=== PATIENT | male | born 1945 | race Caucasian/White ===

== ENCOUNTER 2018-03-09 21:15 | Outpatient (CLI) | payer MEDICARE ==
--- NOTE | 2018-03-09 22:19 | Ultrasound Report ---
EXAM: LEFT LOWER EXTREMITY VENOUS ULTRASOUND EXAM DATE: 03/09/2018 09:45 PM. CLINICAL HISTORY: L LEG EDEMA. COMPARISON: None. TECHNIQUE: Real-time sonographic vascular imaging was performed by the supervisor mixing through the lower extremity utilizing both color-flow and Doppler spectral analysis. Multiple claim representative static bakari ges were saved for review. FINDINGS: Common Femoral Vein (CFV): Normal. CFV-GSV Junction: Normal. Profunda Femoral Vein (PFV): Normal. Femoral Vein (FV) Prox: Normal. Femoral Vein (FV) Mid: Normal. Femoral Vein (FV) Dist: Normal. Popliteal Vein: Normal. Posterior Tibial Veins: Normal. Peroneal Veins: Normal. Other: None. IMPRESSION: No evidence for left leg deep venous thrombosis. [facility] Referring Provider Line: [phone] SITE ID: [id number]
== END 2018-03-09 21:16 | disposition home or self-care (01) ==
LOC: DI 21:15
PROVIDERS: ATTEND Internal Medicine
DX: R60.0 Localized edema (principal)

== ENCOUNTER 2019-04-26 12:00 | Outpatient (CLI) | payer MEDICARE ==
--- NOTE | 2019-05-31 06:42 | Nuclear Medicine Report ---
Reason: FATIGUE, CAD Procedure Date: 04/26/2019 Accession Number: [id number] / [id number] Procedure: NM - Myocardial Perfusion Single CPT Code: FULL RESULT: FINDINGS: IMPRESSION: For complete results, please see the report dated 04/25/2019.
== END 2019-04-26 23:59 | disposition home or self-care (01) ==
LOC: DI 12:00
PROVIDERS: ATTEND Internal Medicine
DX: I25.10 Atherosclerotic heart disease of native coronary artery without angina pectoris (principal); R53.83 Other fatigue
CPT/HCPCS: 78453; 93017; A9500; J2785

== ENCOUNTER 2019-05-18 16:57 | Outpatient (CLI) | payer MEDICARE ==
--- NOTE | 2019-05-20 09:41 | Ultrasound Report ---
Reason: CLAUDICATION Procedure Date: 05/18/2019 Accession Number: [id number] / [id number] Procedure: US - Duplex Lwr Ext Arterial Bilat CPT Code: FULL RESULT: EXAM: Bilateral Lower Extremity Arterial Doppler Ultrasound EXAM DATE: 05/18/2019 06:00 PM. CLINICAL HISTORY: CLAUDICATION. COMPARISON: None. TECHNIQUE: Real-time sonographic vascular imaging was performed by the transplant nurse practitioner, utilizing color-flow, Doppler flow, and spectral analysis. Multiple vaccine customer representative static images were saved for review. FINDINGS: Bilateral lower extremity arterial ultrasounds performed with use of grayscale, color Doppler and spectral Doppler. The bilateral common femoral, profunda femoris, femoral, popliteal, anterior tibial, posterior tibial, peroneal and dorsalis pedis arteries are interrogated and found to be patent by color Doppler. Grayscale Doppler demonstrates diffuse atherosclerotic disease without definite single subjectively hemodynamically flow-limiting focal lesion visualized. Brisk systolic upstrokes are preserved by spectral Doppler throughout the right lower extremity region with the exception that the signal in the dorsalis pedis artery is difficult to detect but confirmed, biphasic. Brisk systolic upstrokes are preserved by spectral Doppler throughout the left lower extremity. The following peak systolic velocities in cm/second and waveforms are detected: Right Leg: PLAYERS ASSISTANT: PSV 132 cm/sec. Biphasic waveform. PSFA: PSV 76 cm/sec. Triphasic waveform. MSFA: PSV 106 cm/sec. Triphasic waveform. DSFA: PSV 131 cm/sec. Biphasic waveform. PFA: PSV 94 cm/sec. Biphasic waveform. POP: PSV 65 cm/sec. Triphasic waveform. LAWRENCE: PSV 70 cm/sec. Triphasic waveform. SPRING TESTER: PSV 79 cm/sec. Triphasic waveform. PER: PSV 42 cm/sec. Triphasic waveform. DPA: PSV 53 cm/sec. Biphasic waveform. Left Leg: PLAYERS ASSISTANT: PSV 138 cm/sec. Biphasic waveform. PSFA: PSV 100 cm/sec. Biphasic waveform. MSFA: PSV 113 cm/sec. Triphasic waveform. DSFA: PSV 137 cm/sec. Bi/Triphasic waveform. PFA: PSV 84 cm/sec. Monophasic waveform. POP: PSV 69 cm/sec. Triphasic waveform. LAWRENCE: PSV 103 cm/sec. Triphasic waveform. SPRING TESTER: PSV 85 cm/sec. Triphasic waveform. PER: PSV 63 cm/sec. Triphasic waveform. DPA: PSV 91 cm/sec. Biphasic waveform. IMPRESSION: Patent three-vessel arterial supply with preserved systolic upstrokes to both ankles with signal detected in both dorsalis pedis arteries. [facility]
== END 2019-05-18 16:58 | disposition home or self-care (01) ==
LOC: DI 16:57
PROVIDERS: ATTEND Internal Medicine
DX: I73.9 Peripheral vascular disease, unspecified (principal)
CPT/HCPCS: 93925

== ENCOUNTER 2019-12-07 20:04 | Outpatient (CLI) | payer MEDICARE ==
--- NOTE | 2019-12-08 09:21 | Ultrasound Report ---
Reason: RIGHT UPPER QUADRANT PAIN Procedure Date: 12/07/2019 Accession Number: [id number] / [id number] Procedure: US - Abdomen Limited CPT Code: Final Report FULL RESULT: EXAM: ABDOMEN ULTRASOUND LIMITED, RUQ EXAM DATE: 12/07/2019 09:17 PM. CLINICAL HISTORY: Right upper quadrant pain. COMPARISON: None. TECHNIQUE: Real-time scanning was performed with static images obtained. FINDINGS: Liver: Normal size with increased echogenicity and coarsening of echotexture. This can limit evaluation for underlying masses, no mass is seen. Liver spans at least 18.5 cm. Main portal vein flow: Hepatopetal. Gallbladder: Gallbladder contains sludge but demonstrates thin wall with no pericholecystic fluid and negative sonographic Stubbs's sign. Biliary System: CBD measures 4 mm. No intrahepatic or extrahepatic ductal dilatation. Other: None. IMPRESSION: Increased hepatic parenchymal echogenicity with coarsened echotexture can be seen with disease such as steatosis. Gallbladder sludge, exam sonographically negative for cholecystitis. [facility]
== END 2019-12-07 20:05 | disposition home or self-care (01) ==
LOC: DI 20:04
PROVIDERS: ATTEND Internal Medicine
DX: R10.11 Right upper quadrant pain (principal); K76.0 Fatty (change of) liver, not elsewhere classified; K82.8 Other specified diseases of gallbladder
CPT/HCPCS: 76705

== ENCOUNTER 2023-01-30 16:41 | Outpatient (CLI) | payer MEDICARE ==
--- NOTE | 2023-01-30 17:01 | XRAY Report ---
PROCEDURE: Calcaneus RT INDICATIONS: ACUTE RT HEAL PAIN TECHNIQUE: Two views of the calcaneus were acquired. COMPARISON: 05/21/2016 FINDINGS: Bones: No fractures or dislocations. No suspicious bony lesions. Soft tissues: No suspicious calcifications. Achilles tendon appears normal. Prominent calcificatio n is noted at the Achilles insertion. IMPRESSION: No visualized acute fracture or dislocation. However, occult injury cannot be excluded. Recommend emiliano rt interval imaging follow-up in 7-10 days as clinically indicated for additional evaluation. Reviewed by: Isabela Peña MD on 01/30/2023 5:00 PM PDT Approved by: Isabela Peña MD on 01/30/2023 5:00 PM PDT Station ID: [id number]
== END 2023-01-30 16:42 | disposition home or self-care (01) ==
LOC: DI 16:41
PROVIDERS: ATTEND Podiatrist
DX: M79.671 Pain in right foot (principal)

== ENCOUNTER 2023-06-06 08:43 | Outpatient (CLI) | payer MEDICARE ==
--- NOTE | 2023-06-09 16:17 | MRI Report ---
PROCEDURE: ANGIO HEAD WO INDICATIONS: VERTEBROBASILAR INSUFFICIENCY TECHNIQUE: Noncontrast axial 3-D [id number] MR angiogram, with 3-dimensional maximum intensity projection (M IP) reformats of the internal carotid arteries and posterior circulation then performed. COMPARISON: MRA neck 06/06/2023 FINDINGS: Image quality: Excellent. Anterior circulation: Intracranial internal carotid arteries demonstrate normal size and intralumina l flow signal. The flow within the paired anterior cerebral arteries is normal and symmetric. The f low within the middle cerebral arteries is normal and symmetric. The anterior communicating artery i s seen. No stenoses, occlusions, or aneurysms. Posterior circulation: There is a right vertebral artery dominance. Visualized portions of the verte bral arteries demonstrate normal caliber, and join to form a normal appearing basilar artery. The fl ow within the posterior cerebral arteries is normal and symmetric. No stenoses, occlusions, or aneur ysms. 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 IMPRESSION: No areas of hemodynamically significant stenosis, vascular occlusion or aneurysmal dilation within th e anterior circulation. No areas of hemodynamically significant stenosis, vascular occlusion or aneurysmal dilation within th e posterior circulation. Reviewed by: Isabela Peña MD on 06/09/2023 4:16 PM PDT Approved by: Isabela Peña MD on 06/09/2023 4:16 PM PDT Station ID: [id number]
--- NOTE | 2023-06-09 16:19 | MRI Report ---
PROCEDURE: ANGIO NECK W/WO INDICATIONS: VERTEBROBASILAR INSUFFICIENCY CONTRAST: GADAVIST 11.3 ML TECHNIQUE: Axial and sagittal balanced GE through the neck. Coronal dynamic MRA after the administration of con trast in the arterial and venous phases, with rotating 3-dimensional maximum intensity projection (LA P) reformats constructed from subtraction images. COMPARISON: MRA head 06/06/2023 FINDINGS: Image quality: Excellent. Carotid system: Great vessels demonstrate a conventional anatomy as they arise from the aortic arch. The origins of the common carotid arteries appear normal. The calibers and courses of the common c arotid arteries are likewise normal. The carotid bifurcations appear normal bilaterally. The college intern al carotid arteries are widely patent up to the [place] of [place]. Posterior circulation: There is a right vertebral artery dominance. The origins of the vertebral art eries are unremarkable. The more superior portions of the vertebral arteries demonstrate normal cour se and caliber. Vertebral arteries join to form a normal appearing basilar artery. Miscellaneous: Subclavian arteries are patent throughout. Pre-contrast images through the neck demo nstrate no soft tissue abnormalities. IMPRESSION: There are no areas of hemodynamically significant stenosis, vascular occlusion or aneurysmal dilation within the neck vasculature. Reviewed by: Isabela Peña MD on 06/09/2023 4:17 PM PDT Approved by: Isabela Peña MD on 06/09/2023 4:17 PM PDT Station ID: [id number]
== END 2023-06-06 08:44 | disposition home or self-care (01) ==
LOC: LAB 08:43
PROVIDERS: ATTEND Internal Medicine
DX: G45.0 Vertebro-basilar artery syndrome (principal); Z79.899 Other long term (current) drug therapy
CPT/HCPCS: 36415; 70544; 70549; 82565; A9585

== ENCOUNTER 2024-04-19 12:29 | Outpatient (CLI) | payer MEDICARE ==
--- NOTE | 2024-04-19 17:17 | XRAY Report ---
PROCEDURE: Knee 3V RT INDICATIONS: R KNEE PAIN TECHNIQUE: 3 views of the knee(s) were acquired. COMPARISON: Right knee radiograph on September 25, 2016 FINDINGS: Bones: Right medial compartment hemiarthroplasty hardware is intact with no perihardware lucency to suggest hardware loosening. Mild lateral and patellofemoral compartment joint space narrowing and jux ta-articular osteophytosis. Mild lateral patellar tilt and subluxation. No fractures or dislocations. No suspicious bony lesions. Soft tissues: No knee joint effusion. No suspicious soft tissue calcifications or masses. IMPRESSION: 1.No acute bony abnormality. 2.Right medial compartment hemiarthroplasty hardware is intact without complication. 3.Mild lateral and patellofemoral compartment osteoarthritis, progressed compared to prior dated Dece mb2015. Reviewed by: Delmis Sawant MD on 04/19/2024 4:53 PM PDT Approved by: Delmis Sawant MD on 04/19/2024 4:53 PM PDT Station ID: [id number]
== END 2024-04-19 12:30 | disposition home or self-care (01) ==
LOC: DI 12:29
PROVIDERS: ATTEND Internal Medicine
DX: M17.11 Unilateral primary osteoarthritis, right knee (principal); Z96.651 Presence of right artificial knee joint

== ENCOUNTER 2024-04-29 10:53 | Outpatient (CLI) | payer MEDICARE ==
--- NOTE | 2024-04-29 11:31 | Sleep Patient Instructions ---
Sleep Center Visit Summary - Patient Visit Information Reason for Visit: Initial consult for evaluation of sleep disordered breathing and other sleep issues. - Patient Instructions Instructions Attached: Sleep Study Additional Instructions: You will be completing a sleep study, either an in-lab polysomnography (PSG) or home sleep study (HST). You will follow-up in the sleep care office after the sleep study is completed to hear the results and talk about therapy, if needed. You will be called by our office staff to schedule this appointment, but you may contact us with any questions. - Clinic Information Contact: [facility] [address] [place] [address] [email or web address] T: [phone]
--- NOTE | 2024-04-29 11:34 | SLEEP CARE CONSULTATION ---
Information from patient questionnaire entered by Fatimah Fox. I have reviewed and concur with the information entered by Fatimah Fox. This document represents the service I personally performed and the decisions made by me, Ange Santos ARNP. History of Present Illness Service Date and Time: 04/29/2024 1053 Reason for Visit: New patient Accompanied by: Spouse (Sofia) Chief Complaint: reports: Frequent awakenings at night Usual bedtime: 2100 Time it takes to fall asleep: 2mins Snores at night: No Observed to quit breathing while asleep: No Sleeps alone due to snoring: No Number of times waking at night: 4 Reasons for waking at night: reports: Bathroom. denies: Choking, Snoring, Gasping for air Toss, Turn, or Twitch while sleeping: No Recalls having dreams: Yes Usually gets out of bed at: 0530 Feels refreshed in the morning: Yes (as long as he get at least 8 hours of sleep) Morning headache: No Sleepy or fatigued during the day: Yes Ever fallen asleep while driving: No Takes day naps: No Dreams during day naps: No Prior sleep studies: No Additional HPI information: I had the pleasure of seeing KINGSTON MARISCAL today regarding the possibility of him having a sleep disorder. His current complaint is frequent night awakenings. He is accompanied by his . She says he snore sometimes but will get up 3-4 times a night mostly for the bathroom. He sleeps from 9 PM to 6 AM. He is getting up about every 2 hours through the night. He normally falls asleep quickly initially and can go back to sleep quickly too. He is currently sleeping in recliner due to leg pain in last month. He does sometimes take unintentional naps in front of the TV about 30 minutes on average. - Parasomnia Symptoms Ever been unable to move upon waking from sleep: No Walks in sleep: No Talks in sleep: Yes Ever acted out dreams in sleep: No Ever felt weak in the knees when startled or emotional: No Bothered by creepy, crawly, restless sensations in legs: No Problems with memory or concentration: No Subjective Initial [place] Sleepiness Scale score: 8 (04/29/24) Past Medical History Past Medical History: reports: Hypertension, Coronary Heart Disease (1995, 2 sents placed; 2007, bypass surgery ), Other (Petit mal epilepsy) Social History The patient's occupation is a SE. Patient is and lives in [place]. Have you smoked in the past 12 months: No Alcohol use: No Caffeine use: Yes Caffeine amount and frequency: coffee tea daily Family History Family history of sleep disordered breathing: No Allergies and Home Medications Known drug allergies: No Drug allergies reviewed: Yes Home medication list reviewed: Yes (as listed) Allergy and home medication list: Allergies No Known Drug Allergies Allergy (Verified 04/29/24 10:53) Review of Systems Weight loss over past 5 years: 20 Cardiovascular: reports: high blood pressure Gastrointestinal: denies: heartburn Urinary: reports: frequency, urgency Neurological: reports: seizure (?) Psychiatric: denies: anxiety, depression Ear/Nose/Throat: reports: dry mouth/throat (mouth breather at night) Endocrine: reports: increased urination Musculoskeletal: reports: back pain Physical Exam Vital signs obtained and entered by: FATIMAH Lemos MA Blood Pressure: 142/82 (RIGHT ARM) Cuff size: long Heart Rate: 66 O2 Saturation: 97 Height: 5 ft 11 in Weight: 246 lb 12.8 oz Body Mass Index: 34.4 BMI Classification: Obese Neck circumference: 18.5 Mouth and throat: narrow oropharynx Soft palate: long Hard palate: normal Uvula: normal Uvula visualization: 25% Mallampati Class III Tongue: enlarged in size with teeth garcia on lateral edges Tonsils: small Neck: normal w/o lymphadenopathy or thyromegaly Heart: regular rate and rhythm Lungs: clear bilaterally Impression and Plan 1. Suspected Obstructive Sleep Apnea-Hypopnea Syndrome, as suggested by a history of snoring, frequent awakening during the night and history of hypertension and cardiac disease (CHF). Narrow oropharynx and obesity are common predisposing factors for obstructive sleep apnea-hypopnea syndrome. I recommend proceeding to polysomnography to confirm the diagnosis and to assess severity. If the patient has significant sleep disordered breathing, a manual CPAP titration study will also be performed to find the optimal treatment pressure. I informed the patient of what the sleep studies involve and after some discussion, obtained agreement to proceed. The pathophysiology of obstructive sleep apnea-hypopnea syndrome was discussed with the patient and health risks of cardiovascular and cerebrovascular disease if not treated. Risks of drowsy driving discussed in detail and patient advised to avoid long distance driving and to pull up hand at the first sign of drowsiness. Patient agreed to plan. * Schedule polysomnography * Avoid long distance driving or driving when feeling sleepy. * Avoid alcohol, sedative and muscle relaxant around bedtime. * Attempt to lose weight. * Review instructions provided by trained office staff on how to prepare for the sleep study. * Return for follow-up after sleep study completed. Counseling Topics: Weight loss health impact Plan: PSG and followup Visit Type: In Office Time Spent with Patient (minutes): 34 Provider Statement: I spent 100% of the Face to Face Visit with the patient with greater than 50% spent counseling the patient and coordination of care.
[2024-04-29 11:39] VITALS: BP 142/82; O2SAT 97
== END 2024-04-29 10:54 | disposition home or self-care (01) ==
LOC: SC 10:53
PROVIDERS: ATTEND Nurse Practitioner Family
DX: G47.8 Other sleep disorders (principal); R06.83 Snoring; E66.9 Obesity, unspecified; Z68.34 Body mass index [BMI] 34.0-34.9, adult
CPT/HCPCS: 99203; G0463; 99212

== ENCOUNTER 2024-06-09 20:45 | Outpatient (CLI) | payer MEDICARE | END 2024-06-09 20:46 | disposition home or self-care (01) | LOC: SC 20:45 | PROVIDERS: ATTEND Nurse Practitioner Family | DX: G47.33 Obstructive sleep apnea (adult) (pediatric) (principal); E66.9 Obesity, unspecified; Z68.34 Body mass index [BMI] 34.0-34.9, adult | CPT/HCPCS: 95810 ==

== ENCOUNTER 2024-06-24 09:58 | Outpatient (CLI) | payer MEDICARE ==
--- NOTE | 2024-06-24 10:25 | Sleep Patient Instructions ---
Sleep Center Visit Summary - Patient Visit Information Reason for Visit: Sleep study followup - Patient Instructions Additional Instructions: You are being started on CPAP therapy. You will be completing a titration sleep study in our sleep lab where you will be sleeping with the CPAP machine on and we will be adjusting your pressures to find your optimal pressure settings. Once we have your results back, we will call you and schedule a follow up to go over the results, you may contact us with any questions or issues as needed. - Clinic Information Contact: [facility] [address] [place] [address] [email or web address] T: [phone]
--- NOTE | 2024-06-24 10:30 | SLEEP CARE CONSULTATION ---
Information from patient questionnaire entered by Fatimah Fox. I have reviewed and concur with the information entered by Fatimah Fox. This document represents the service I personally performed and the decisions made by , Ange Santos ARNP. History of Present Illness Service Date and Time: 06/24/2024 0958 Accompanied by: Spouse (Sofia) Initial [place] Sleepiness Scale score: 8 (04/29/24) Current [place] Sleepiness Scale score: 13 (06/24/24) Additional HPI information: KINGSTON MARISCAL returns for follow up and results of the recently performed polysomnography. The sleep study done on 06/09/24 showed moderate obstructive sleep apnea with an average AHI of 21.8 and kvng oxygen saturation of 83%. His cardiac monitoring showed atrial fibrillation. I explained the pathophysiology behind obstructive sleep apnea. We then spent quite a bit of time discussing different treatment options. For mild obstructive sleep apnea, surgery and oral appliance are alternatives to nasal CPAP therapy but in moderate or severe cases, nasal CPAP is the most effective and reliable treatment. I reviewed the impact of weight changes on sleep apnea and strongly recommended losing weight. After some discussion, the patient opted to go with the nasal CPAP therapy. A manual titration study will be ordered to find optimal pressure. I explained how CPAP machine works and what to expect when using the machine. Patient does not drink alcohol. Patient was cautioned about risks of drowsy driving until sleepiness symptoms resolve. Patient denies drowsy driving. Sleep Study - Results Type of Sleep Study: Polysomnography (COMPLETED 06/09/24) Prior sleep studies: No Polysomnography/Home Sleep Study results: IMPRESSION: The quality of the study is good. The patient had normal sleep efficiency. The sleep architecture was abnormal for sleep fragmentation and lack of slow wave sleep (N3). Respira tory monitoring showed moderate obstructive sleep apnea-hypopnea (AHI = 21.8) associated with frequent arousals, oxyhemoglobin desaturation and mild hypoxia (kvng oxygen saturation of 83%). The respiratory events occurred independently of sleep stage and body position (supine AHI = 29.9; non-supine = 20.67). Snore was light to loud in intensity. There was no significant periodic leg movement of sleep. Cardiac rhythm was atrial fibrillation. No abnormal behavior (parasomnia) observed during the night. Allergies and Home Medications Known drug allergies: No Drug allergies reviewed: Yes Home medication list reviewed: Yes (no changes) Allergy and home medication list: Allergies No Known Drug Allergies Allergy (Verified 06/24/24 09:59) Review of Systems Review of systems same as previous: Yes (NO CHANGE) Physical Exam Vital signs obtained and entered by: FATIMAH Lemos MA Blood Pressure: 117/73 (RIGHT ARM) Cuff size: long Heart Rate: 66 O2 Saturation: 97 Height: 5 ft 11 in Weight: 252 lb 9.6 oz Body Mass Index: 35.2 BMI Classification: Obese Impression and Plan 1. Obstructive Sleep Apnea-Hypopnea Syndrome, moderate, with lowest oxygen sa turation of 83%. Obviously this is the cause of the patients symptoms of unrefreshed sleep, and excessive daytime sleepiness. Positive pressure therapy could benefit hypertension, cardiac disease (CHD) and epilepsy. As mentioned above, the patient will be started on nasal autoCPAP therapy. A manual titration study will be completed to find optimal treatment pressure. Compliance guidelines also reviewed. He voiced understanding and agreement with plan. 2. Hypoxemia, mild, with a kvng oxygen saturation of 83% and 16.4 minutes spent under 90%. The baseline oxygen saturation was normal with an average oxygen saturation of 91%. 3. Atrial fibrillation. Patient noted to have atrial fibrillation through cardiac monitoring during the night of his sleep study. Patient with a heart history of coronary heart disease. He has been contacted and follow up monitoring is ordered. He will continue to follow up for further evaluation and treatment as needed. 4. Obesity, unspecified. Currently patients BMI is 35.2. Obesity increases the risk of apnea, CPAP pressure requirements and overall health risks especially cardiovascular and diabetes. Thus patient is advised to lose weight. * Titration study. * Attempt to lose weight. * The patient is again cautioned about driving until sleepiness completely resolves. * Return after titration study to review results and initiate therapy. Counseling Topics: Weight loss health impact Follow up with Sleep Care in: other (after titration study) Plan: Titration study and followup Visit Type: In Office Time Spent with Patient (minutes): 23 Provider Statement: I spent 100% of the Face to Face Visit with the patient with greater than 50% spent counseling the patient and coordination of care.
[2024-06-24 10:48] VITALS: BP 117/73; O2SAT 97
== END 2024-06-24 09:59 | disposition home or self-care (01) ==
LOC: SC 09:58
PROVIDERS: ATTEND Nurse Practitioner Family
DX: G47.33 Obstructive sleep apnea (adult) (pediatric) (principal); R09.02 Hypoxemia; I48.91 Unspecified atrial fibrillation; E66.9 Obesity, unspecified; Z68.35 Body mass index [BMI] 35.0-35.9, adult; I51.7 Cardiomegaly; I77.810 Thoracic aortic ectasia
CPT/HCPCS: 93307; 99213; G0463; 99212

== ENCOUNTER 2024-06-24 15:15 | Outpatient (CLI) | payer MEDICARE | END 2024-06-24 15:16 | disposition home or self-care (01) | LOC: DI 15:15 | PROVIDERS: ATTEND Internal Medicine | DX: I48.91 Unspecified atrial fibrillation (principal); I51.7 Cardiomegaly; I77.810 Thoracic aortic ectasia | CPT/HCPCS: 93307 ==